=== PATIENT | male | born 1965 | race Caucasian/White ===

== ENCOUNTER 2018-01-15 19:09 | Observation (INO) ==
[2018-01-15] MEDS ORDERED: MethylPREDNISolone Sod Succinate Inj 125 MG/2 ML Vial IV.PUSH ONE (19:22)
[2018-01-15 20:03] LABS: Hematocrit 47.3 % (39.0-51.0); Hemoglobin 16.3 gm/dL (13.0-17.0); Mean Corpuscular HGB Conc 34.6 % (32.0-36.0); Mean Corpuscular Hemoglobin 33.2 pg (27.0-34.0); Mean Corpuscular Volume 95.9 fL (80.0-100.0); Platelet Count 234 th/mm3 (150-450); Red Blood Count 4.93 mil/mm3 (4.50-5.90); Red Cell Distribution Width 12.6 % (11.6-17.2)
[2018-01-15 20:04] LABS: Chloride 105 meq/L (98-107); Potassium 4.1 meq/L (3.5-5.1); Sodium 141 meq/L (136-145)
--- NOTE | 2018-01-15 20:06 | ED ---
HPI General Chief Complaint: Respiratory Symptoms Stated Complaint: SOB Time Seen by Provider: 01/15/18 19:22 Source: patient Mode of arrival: ambulatory Limitations: no limitations History of Present Illness MD Complaint: Reports shortness of breath Onset (ago): day(s) (2) Context: Reports recent illness (He states that he has had a cough with sputum production for the last week. The shortness of breath started yesterday.) Severity: severe Consistency/Duration: constant and progressively worsening Relieving factors: nothing Exacerbating factors: nothing Known history of: Denies COPD, asthma and congestive heart failure Associated symptoms: Reports denies other symptoms Treatment prior to arrival: Reports none Related Data Home oxygen amount: none Home Medications Medication Instructions Recorded Confirmed levothyroxine 175 mcg PO DAILY 01/15/18 01/15/18 lisinopril 5 mg PO DAILY 01/15/18 01/15/18 Allergies Allergy/AdvReac Type Severity Reaction Status Date / Time No Known Allergies Allergy Verified 01/15/18 19:12 Review of Systems ROS: all other systems reviewed are negative [facility] Medical History Medical History Hypertension (Acute) Leukemia (Acute) Thyroid disease (Acute) Surgical History Surgical History History of elbow surgery (Acute) Social History Social History Substance History: No History of Abuse Smoking Status: Current every day smoker Tobacco Type: Cigarettes How Often Do You Have a Drink Containing Alcohol: Never Recent Travel in [facility] within the Last 8 Weeks: No Recent Out of Country Travel within the Last 8 Weeks: No Immunization History Tetanus Immunization: <5 Years Exam Const General: cooperative, healthy appearing, well developed and well groomed Orientation: alert, awake and oriented x3 HENMT Head: normal to inspection, normocephalic and atraumatic Eyes Alignment and Position: alignment normal Conjunctivae: conjunctivae normal Sclera: sclerae normal EOM: EOM intact bilaterally Neck Neck: normal visual inspection and full ROM Chest Chest: normal inspection of the chest Resp Effort & Inspection: labored Auscultation: diminished lung sounds and wheezes Cardio Rate: regular rate Rhythm: regular rhythm GI Inspection: normal to inspection Palpation: soft Back/Spine/Pelvis Cervical Spine: cervical ROM normal Thoracic/Lumbar Spine: thoraco-lumbar ROM normal Skin General: no rashes or lesions noted and turgor normal Neuro General: alert, awake, oriented x3, moves all extremities and CN's II-XI intact bilaterally Extrem General: normal to inspection and full ROM Psych Appearance: grossly normal Mental Status: mental status grossly normal Speech and Movement: speech and movement normal Mood: congruent mood Affect: normal affect Attitude: cooperative Thought Process: normal Thought Content: normal Judgment: judgment good Course Initial Documented Vital Signs Temperature 98.8 F 01/15/18 19:13 Pulse Rate 80 01/15/18 19:13 Respiratory Rate 32 H 01/15/18 19:13 Blood Pressure 180/88 H 01/15/18 19:13 Pulse Oximetry 91 L 01/15/18 19:13 Last Documented Vital Signs Temperature 98.8 F 01/15/18 19:13 Pulse Rate 104 H 01/15/18 21:50 Respiratory Rate 20 01/15/18 21:50 Blood Pressure 169/69 H 01/15/18 19:26 Pulse Oximetry 96 01/15/18 21:20 Critical Care Time Critical Care Time: Yes Total Critical Care Time: 45 Attestation: Time to perform other separately billable procedures was not included in the critical care time. My time did not include minutes spent treating any other patients simultaneously or on activities that did not directly contribute to the patient's treatment. The services I provided to this patient were to treat and/or prevent clinically significant deterioration due to respiratory distress I provided critical care services requiring my management, as noted below: Chart data review, documentation time, medication orders and management, vital sign assessments/reviewing monitor data, ordering and reviewing lab tests, ordering and interpreting/reviewing x-rays and diagnostic studies, care of the patient and discussion of the patient with the admitting physicians Medical Decision Making MDM Narrative Medical decision making narrative: This patient presents to us in respiratory distress. He was tachypneic at about 32 and had sats of about 90% on arrival. His lungs are very tight. He is being given stacked nebs. He has been given a dose of IV Solu-Medrol. Chest x-ray and lab work is pending. This patient was reevaluated following 3 nebs and Solu-Medrol. He still had significant wheezing and tightness. He was then given 3 more nebs. He is only minimally improved following this. Therefore, he needs to be admitted for further respiratory therapy. Medical Screen Exam Complete: Yes Emergency Medical Condition: Yes Differential Diagnosis Differential Diagnosis: Differential diagnosis of dyspnea includes but is not limited to congestive heart failure, pneumonia, wheezing, pneumothorax, pulmonary embolism Lab Data Lab results reviewed: Yes I reviewed the patient's lab results. Result diagrams: 01/15/18 19:40 01/15/18 19:40 Lab Results 01/15/18 01/15/18 01/15/18 Range/Units 19:40 19:40 19:40 CBC w Diff Slide review pending WBC 26.0 H (4.0-11.0) th/mm3 RBC 4.93 (4.50-5.90) mil/mm3 Hgb 16.3 (13.0-17.0) gm/dL Hct 47.3 (39.0-51.0) % MCV 95.9 (80.0-100.0) fL MCH 33.2 (27.0-34.0) pg MCHC 34.6 (32.0-36.0) % RDW 12.6 (11.6-17.2) % Plt Count 234 (150-450) th/mm3 MPV 8.0 (7.0-11.0) fL WBC Differential Manual diff final Seg Neuts % (Manual) 46 (16-70) % Band Neuts % (Manual) 1 (0-6) % Lymphocytes % (Manual) 37 (9-44) % Atypical Lymphs % (Man) 13 H (0-0) % Monocytes % (Manual) 1 (0-8) % Eosinophils % (Manual) 2 (0-4) % Abs Neuts (Manual) 12.2 H (1.8-7.7) th/mm3 Differential Comment . Platelet Estimate Normal (Normal) Platelet Morphology Normal (Normal) RBC Morphology Normal (Normal) Sodium 141 (136-145) meq/L Potassium 4.1 (3.5-5.1) meq/L Chloride 105 (98-107) meq/L Carbon Dioxide 29.5 (21.0-32.0) meq/L Anion Gap 7 (5-15) meq/L BUN 15 (7-18) mg/dL Creatinine 0.88 (0.60-1.30) mg/dL Estimated GFR Greater than 89 (>89) mL/min Random Glucose 114 H (74-106) mg/dL Calcium 8.5 (8.5-10.1) mg/dL Total Bilirubin 0.5 (0.2-1.0) mg/dL AST 27 (15-37) U/L ALT 32 (12-78) U/L Alkaline Phosphatase 70 (45-117) U/L Troponin I Less than 0.02 L (0.02-0.05) ng/mL B-Natriuretic Peptide 11 (0-100) pg/mL Total Protein 7.6 (6.4-8.2) g/dL Albumin 3.9 (3.4-5.0) g/dL Imaging Data Attestation: I personally reviewed and interpreted this imaging study as follows : Radiologist's impression: Chest X-Ray 01/15/18 19:22 CONCLUSION: No acute findings. ECG Data EKG Prior to Arrival: No Attestation: I personally reviewed and interpreted this ECG as follows: (EKG shows a sinus rhythm with a rate of 107. No acute STT wave changes.) Discharge Plan Discharge Disposition Patient Disposition: 30 Still Patient Discharge Details Diagnosis: Acute bronchospasm Physicians Team ED Provider: Emily Cameron Primary Care Provider: UNKNOWN, Attending Provider: Nel Sue Rxs /Orders / Referrals /Forms Prescriptions: No Action levothyroxine 175 mcg Tablet 175 mcg PO DAILY RF: 0 lisinopril 5 mg Tablet 5 mg PO DAILY RF: 0 Discharge Interventions Interventions: Vital Signs Last Done: 01/15/18 19:26 Status ED Status: With Doctor
--- NOTE | 2018-01-15 20:07 | XR ---
EXAM DATE: 01/15/2018 7:56 PM EST AGE/SEX: 52 years / Male INDICATIONS: Shortness of breath. CLINICAL DATA: This is the patient's initial encounter. Patient reports that signs and symptoms have been present for 1 day and indicates a pain score of 0/10. MEDICAL/SURGICAL HISTORY: None. None. COMPARISON: POI, XR CHEST PA AND LAT, 09/02/2017. . FINDINGS: A single AP view of the chest demonstrates the lungs to be symmetrically aerated without evidence of mass, infiltrate or effusion. The cardiomediastinal contours are unremarkable. Osseous structures a re intact. CONCLUSION: No acute findings. Electronically signed by: Jericho Lake MD 01/15/2018 8:05 PM EST
[2018-01-15 20:09] LABS: Albumin 3.9 g/dL (3.4-5.0); Anion Gap 7 meq/L (5-15); Blood Urea Nitrogen 15 mg/dL (7-18); Calcium 8.5 mg/dL (8.5-10.1); Carbon Dioxide 29.5 meq/L (21.0-32.0); Glucose,Random 114 mg/dL (74-106)
[2018-01-15 20:12] LABS: Alanine Aminotransferase 32 U/L (12-78); Aspartate Aminotransferase 27 U/L (15-37); Glomerular Filtration Rate Greater Than 89 mL/min (>89)
[2018-01-15 20:14] LABS: Total Protein 7.6 g/dL (6.4-8.2)
[2018-01-15 20:15] LABS: Alkaline Phosphatase 70 U/L (45-117)
[2018-01-15 20:26] LABS: Atypical Lymphs 13 % (0-0); Eosinophils 2 % (0-4); Lymphocytes 37 % (9-44); Monocytes 1 % (0-8)
[2018-01-15 20:27] LABS: Platelet Estimate Normal (Normal); Platelet Morphology Normal (Normal); RBC Morphology Normal (Normal)
[2018-01-15] MEDS ORDERED: Acetaminophen 325 MG Tablet PO PRN (22:08)
[2018-01-15] MEDS ORDERED: Bisacodyl 10 MG Supp RECTAL PRN (22:08)
[2018-01-16] MEDS ORDERED: Benzonatate 100 MG Capsule PO PRN (00:09)
[2018-01-16] MEDS: MethylPREDNISolone Sod Succinate Inj 40 MG/ML Vial IV.PUSH SCH (02:05)
[2018-01-16 05:47] LABS: Baso # (Auto) 0.6 th/mm3 (0.0-0.2); Baso % (Auto) 3.3 % (0.0-2.0); Hematocrit 45.6 % (39.0-51.0); Hemoglobin 15.5 gm/dL (13.0-17.0); Lymph # (Auto) 1.9 th/mm3 (1.0-4.8); Lymph % (Auto) 9.9 % (9.0-44.0); Mean Corpuscular HGB Conc 33.9 % (32.0-36.0); Mean Corpuscular Hemoglobin 32.3 pg (27.0-34.0); Mean Corpuscular Volume 95.3 fL (80.0-100.0); Mean Platelet Volume 7.9 fL (7.0-11.0); Mono # (Auto) 0.2 th/mm3 (0.0-0.9); Mono % (Auto) 0.9 % (0.0-8.0); Neut # (Auto) 16.1 th/mm3 (1.8-7.7); Neut % (Auto) 85.9 % (16.0-70.0); Platelet Count 230 th/mm3 (150-450); Red Blood Count 4.79 mil/mm3 (4.50-5.90); Red Cell Distribution Width 12.8 % (11.6-17.2); White Blood Count 18.8 th/mm3 (4.0-11.0)
[2018-01-16 05:55] LABS: Chloride 104 meq/L (98-107); Potassium 4.3 meq/L (3.5-5.1); Sodium 139 meq/L (136-145)
[2018-01-16 06:00] LABS: Albumin 3.7 g/dL (3.4-5.0); Anion Gap 8 meq/L (5-15); Blood Urea Nitrogen 13 mg/dL (7-18); Calcium 8.5 mg/dL (8.5-10.1); Carbon Dioxide 27.5 meq/L (21.0-32.0); Glucose,Random 187 mg/dL (74-106)
[2018-01-16 06:03] LABS: Alanine Aminotransferase 30 U/L (12-78); Aspartate Aminotransferase 20 U/L (15-37)
[2018-01-16 06:04] LABS: Glomerular Filtration Rate 86 mL/min (>89)
[2018-01-16 06:05] LABS: Total Protein 7.7 g/dL (6.4-8.2)
[2018-01-16 06:06] LABS: Alkaline Phosphatase 65 U/L (45-117)
--- NOTE | 2018-01-16 09:04 | P.HP ---
History of Present Illness Service: Hospitalist Primary Care Physician: UNKNOWN Chief Complaint: Shortness of breath History of Present Illness: Ms. Melissa is a pleasant 52-year-old male with a history of COPD, hypertension, hypothyroidism who presented to the emergency department on 2017 due to shortness of breath that started day prior to this admission. Patient reports yellowish sputum production. No fever or chills. He denies any chest pain, abdominal pain, nausea or vomiting. Denies any changes in bowel or bladder habits. Chest x-ray was unremarkable. CBC shows significant leukocytosis with WBC 26,000. D-dimer 0.36. At the time of this interview, patient is comfortable on 3 L of oxygen via nasal cannula. He does not use any albuterol or Symbicort at home. He lives with roommates. He recently moved here from [place]. Past medical history: Hypertension, COPD, hypothyroidism Past surgical history: Left elbow surgery Social history: Patient has been smoking for a long time and currently smokes 1 pack a day. He denies using illicit drugs or alcohol. Family history: No family history of heart disease or cancer. Review of Systems All other systems reviewed negative except as stated in HPI PMFSH - History History Provided By: Patient - Medical History Medical History: Medical History (Last Reviewed 01/16/18 @ 09:01 by Shala Churchill DO) Hypertension Leukemia Thyroid disease - Surgical History Surgical History: Surgical History (Last Reviewed 01/16/18 @ 09:01 by Shala Churchill DO) History of elbow surgery - Tobacco History Second Hand Smoke Exposure: Yes Tobacco Use In Past 30 Days: Yes Smoking Status: Current some day smoker Tobacco Type: Cigarettes - Alcohol History How Often Do You Have a Drink Containing Alcohol: Never - Substance Use History Substance History: No History of Abuse - Travel History Recent Travel in the [place] Within the Last 8 Weeks: No Recent Travel Out of the Country Within the Last 8 Weeks: No - Immunization History Tetanus Immunization: <5 Years Medications and Allergies Active Medications: Active Medications Acetaminophen (Tylenol) 650 mg PO Q4H PRN PRN Reason: Temp > 100.4 Al Hydroxide/Mg Hydroxide (Milk Of Magnesia Liq) 30 ml PO Q12H PRN PRN Reason: Mild Constipation Albuterol (Duoneb Neb (Prn)) 1 ampul NEB Q2HR NEB PRN PRN Reason: SOB/WHEEZING Albuterol (Duoneb Neb (John)) 1 ampul NEB Q4HR WHILE AWAKE NEB [facility] Last Admin: 01/16/18 07:27 Dose: 1 ampul Benzonatate (Tessalon Perles) 100 mg PO Q8H PRN PRN Reason: COUGH Last Admin: 01/16/18 00:26 Dose: 100 mg Bisacodyl (Dulcolax Supp) 10 mg RECTAL DAILY PRN PRN Reason: SEVERE CONSITIPATION Budesonide/Formoterol Fumarate (Symbicort 160/4.5 Mcg Inh) 2 puff INH BID [facility] Enoxaparin Sodium (Lovenox Inj) 40 mg SQ Q24H [facility] Guaifenesin (Mucinex Er) 600 mg PO BID [facility] Lactulose (Lactulose Liq) 30 ml PO DAILY PRN PRN Reason: SEVERE CONSITIPATION Levofloxacin (Levaquin) 750 mg PO DAILY [facility] Stop: 01/23/18 08:59 Ondansetron HCl (Zofran Inj) 4 mg IV.PUSH Q6H PRN PRN Reason: NAUSEA OR VOMITING Prednisone (Deltasone) 50 mg PO DAILY [facility] Stop: 01/21/18 08:59 Senna/Docusate Sodium (Elba-Colace) 1 tab PO BID [facility] Sennosides (Senokot) 17.2 mg PO Q12H PRN PRN Reason: Moderate Constipation Sodium Chloride (Ns Flush) 2 ml IV.FLUSH PRN PRN PRN Reason: FLUSH AFTER USING IV ACCESS Allergies Allergy/AdvReac Type Severity Reaction Status Date / Time No Known Allergies Allergy Verified 01/15/18 19:12 Home Medications Medication Instructions Recorded Confirmed Type levothyroxine 175 mcg PO DAILY 01/15/18 01/15/18 History lisinopril 5 mg PO DAILY 01/15/18 01/15/18 History Exam Vital signs: Vital Signs 01/15/18 19:13 01/15/18 19:26 01/15/18 19:30 Temperature 98.8 F Pulse Rate 80 78 74 Respiratory Rate 32 H 20 22 Blood Pressure 180/88 H 169/69 H Pulse Oximetry 91 L 95 01/15/18 19:50 01/15/18 20:00 01/15/18 21:20 Temperature Pulse Rate 88 86 88 Respiratory Rate 20 20 18 Blood Pressure Pulse Oximetry 96 01/15/18 21:35 01/15/18 21:50 01/15/18 23:07 Temperature Pulse Rate 85 104 H 106 H Respiratory Rate 20 20 20 Blood Pressure 115/66 Pulse Oximetry 93 L 01/16/18 00:00 01/16/18 01:10 01/16/18 07:30 Temperature 98.4 F Pulse Rate 105 H 73 Respiratory Rate 18 20 Blood Pressure 131/71 Pulse Oximetry 92 L 94 L 94 L Intake & Output 01/15/18 01/16/18 01/16/18 18:59 06:59 18:59 Intake Total 440 / 440 Output Total 300 / 300 Balance 140 / 140 Weight 104.3 kg Intake: Oral 440 / 440 Output: Urine 300 / 300 Other: # Voids 1 Date of Last Bowel Movement 01/15/18 Weight On Admission 104 kg Narrative: GENERAL: This is a well-nourished, well-developed patient, in no apparent distress. SKIN: No rashes, ecchymoses or lesions. Warm and dry. HEAD: Atraumatic. Normocephalic. No temporal or scalp tenderness. EYES: Pupils equal round and reactive. No injection or drainage. ENT: Nose without bleeding, purulent drainage or septal hematoma. Airway patent. NECK: Trachea midline. No lymphadenopathy. Supple, nontender, no meningeal signs. CARDIOVASCULAR: Regular rate and rhythm without murmurs, gallops, or rubs. No JVD. RESPIRATORY: Moderate air entry, diffuse wheezing present. No accessory muscle use. GASTROINTESTINAL: Abdomen soft, non-tender, nondistended. No guarding. MUSCULOSKELETAL: Extremities without clubbing, cyanosis, or edema. NEUROLOGICAL: Awake and alert. Cranial nerves II through XII intact. No focal neurological deficits. Normal speech. Results - Labs CBC & Chem 7: 01/16/18 05:28 01/16/18 05:28 Labs: Laboratory Results - last 24 hr 01/15/18 01/15/18 01/15/18 19:40 19:40 19:40 CBC w Diff Slide review pending WBC 26.0 H RBC 4.93 Hgb 16.3 Hct 47.3 MCV 95.9 MCH 33.2 MCHC 34.6 RDW 12.6 Plt Count 234 MPV 8.0 Neut % (Auto) Lymph % (Auto) Arthur % (Auto) Eos % (Auto) Baso % (Auto) Neut # (Auto) Lymph # (Auto) Arthur # (Auto) Eos # (Auto) Baso # (Auto) WBC Differential Manual diff final Seg Neuts % (Manual) 46 Band Neuts % (Manual) 1 Lymphocytes % (Manual) 37 Atypical Lymphs % (Man) 13 H Monocytes % (Manual) 1 Eosinophils % (Manual) 2 Abs Neuts (Manual) 12.2 H Differential Comment . Platelet Estimate Normal Platelet Morphology Normal RBC Morphology Normal D-Dimer Quant (PE/DVT) Sodium 141 Potassium 4.1 Chloride 105 Carbon Dioxide 29.5 Anion Gap 7 BUN 15 Creatinine 0.88 Estimated GFR Greater than 89 Random Glucose 114 H Calcium 8.5 Total Bilirubin 0.5 AST 27 ALT 32 Alkaline Phosphatase 70 Troponin I Less than 0.02 L B-Natriuretic Peptide 11 Total Protein 7.6 Albumin 3.9 01/16/18 01/16/18 01/16/18 05:28 05:28 07:45 CBC w Diff Auto diff final WBC 18.8 H RBC 4.79 Hgb 15.5 Hct 45.6 MCV 95.3 MCH 32.3 MCHC 33.9 RDW 12.8 Plt Count 230 MPV 7.9 Neut % (Auto) 85.9 H Lymph % (Auto) 9.9 Arthur % (Auto) 0.9 Eos % (Auto) 0.0 Baso % (Auto) 3.3 H Neut # (Auto) 16.1 H Lymph # (Auto) 1.9 Arthur # (Auto) 0.2 Eos # (Auto) 0.0 Baso # (Auto) 0.6 H WBC Differential . Seg Neuts % (Manual) Band Neuts % (Manual) Lymphocytes % (Manual) Atypical Lymphs % (Man) Monocytes % (Manual) Eosinophils % (Manual) Abs Neuts (Manual) Differential Comment . Platelet Estimate Platelet Morphology RBC Morphology D-Dimer Quant (PE/DVT) 0.36 Sodium 139 Potassium 4.3 Chloride 104 Carbon Dioxide 27.5 Anion Gap 8 BUN 13 Creatinine 0.92 Estimated GFR 86 L Random Glucose 187 H Calcium 8.5 Total Bilirubin 0.6 AST 20 ALT 30 Alkaline Phosphatase 65 Troponin I B-Natriuretic Peptide Total Protein 7.7 Albumin 3.7 - Imaging Impressions Chest X-Ray 01/15/18 19:22 CONCLUSION: No acute findings. Caprini VTE Risk Assessment Caprini VTE Risk Assessment: Moderate/High Risk (score >= 2) Caprini Risk Assessment Model: Point Value = 1 Point Value = 2 Point Value = 3 Point Value = 5 Age 41-60 Minor surgery BMI > 25 kg/m2 Swollen legs Varicose veins or History of unexplained or recurrent spontaneous Oral contraceptives or hormone replacement Sepsis (< 1 month) Serious lung disease, including pneumonia (< 1 month) Abnormal pulmonary function Acute myocardial infarction Congestive heart failure (< 1 month) History of inflammatory bowel disease Medical patient at bed rest Age 61-74 Arthroscopic surgery Major open surgery (> 45 min) Laparoscopic surgery (> 45 min) Malignancy Confined to bed (> 72 hours) Immobilizing plaster cast Central venous access Age >= 75 History of VTE Family history of VTE Factor V Leiden Prothrombin [id number] Lupus anticoagulant Anticardiolipin antibodies Elevated serum homocysteine Heparin-induced thrombocytopenia Other congenital or acquired thrombophilia Stroke (< 1 month) Elective arthroplasty Hip, pelvis, or leg fracture Acute spinal cord injury (< 1 month) Prophylaxis Regimen: Total Risk Factor Score Risk Level Prophylaxis Regimen 0-1 Low Early ambulation 2 Moderate Order ONE of the following: *Sequential Compression Device (SCD) *Heparin 5000 units SQ BID 3-4 Higher Order ONE of the following medications: *Heparin 5000 units SQ TID *Enoxaparin/Lovenox 40 mg SQ daily (WT < 150 kg, CrCl > 30 mL/min) *Enoxaparin/Lovenox 30 mg SQ daily (WT < 150 kg, CrCl > 10-29 mL/min) *Enoxaparin/Lovenox 30 mg SQ BID (WT < 150 kg, CrCl > 30 mL/min) AND/OR *Sequential Compression Device (SCD) 5 or more Highest Order ONE of the following medications: *Heparin 5000 units SQ TID (Preferred with Epidurals) *Enoxaparin/Lovenox 40 mg SQ daily (WT < 150 kg, CrCl > 30 mL/min) *Enoxaparin/Lovenox 30 mg SQ daily (WT < 150 kg, CrCl > 10-29 mL/min) *Enoxaparin/Lovenox 30 mg SQ BID (WT < 150 kg, CrCl > 30 mL/min) AND *Sequential Compression Device (SCD) Assessment and Plan - Plan Mr. Melissa is a pleasant 52-year-old male with a history of hypothyroidism, hypertension and COPD who presents to the emergency department due to 1 day duration of dyspnea. He denies any chest chest pain, fever or chills. He reports yellowish sputum production. Acute COPD exacerbation Continue supplemental oxygen to obtain O2 saturation above 90% Continue DuoNeb PRN and scheduled. Continue Symbicort Start prednisone 50 mg daily. Discontinue methylprednisolone IV Start Levaquin 750 mg p.o. daily Hypertension Hypothyroidism Continue levothyroxine 175 mcg daily and lisinopril 5 mg daily Full code. Lovenox. Discharge plan: Patient can likely be discharged within 24-48 hours. If he needs home O2, it might be challenging due to no insurance.
[2018-01-16] MEDS: guaiFENesin 600 MG ER Tablet PO SCH ×2 (09:07→21:41)
[2018-01-16] MEDS: Enoxaparin Inj 40 MG/0.4 ML Syringe SQ SCH (09:07)
[2018-01-16] MEDS: Senna/Docusate Sodium 8.6/50 MG Tablet PO SCH ×2 (09:08→21:41)
[2018-01-16] MEDS: levoFLOXacin 750 MG Tablet PO SCH (09:23)
[2018-01-16] MEDS: Budesonide-Formoterol 160/4.5 MCG 6 GM Inhaler INH SCH ×2 (11:16→21:41)
--- NOTE | 2018-01-16 12:10 | ECG ---
Date Performed: 01/15/2018 Time Performed: 21:50:12 PTAGE: 52 years EKG: SINUS TACHYCARDIA NONSPECIFIC T-WAVE ABNORMALITY ABNORMAL RHYTHM ECG NO PREVIOUS TRACING DOCTOR: Jaron Bailey Interpretating Date/Time 01/16/2018 12:06:16
[2018-01-17] MEDS: Levothyroxine 100 MCG Tablet PO SCH (07:21)
[2018-01-17] MEDS: Levothyroxine 75 MCG Tablet PO SCH (07:21)
[2018-01-17] MEDS: Lisinopril 5 MG Tablet PO SCH (08:42)
[2018-01-17] MEDS: guaiFENesin 600 MG ER Tablet PO SCH ×2 (08:42→20:02)
[2018-01-17] MEDS: levoFLOXacin 750 MG Tablet PO SCH (08:43)
[2018-01-17] MEDS: Enoxaparin Inj 40 MG/0.4 ML Syringe SQ SCH (08:43)
[2018-01-17] MEDS: Senna/Docusate Sodium 8.6/50 MG Tablet PO SCH ×2 (08:44→20:02)
[2018-01-17] MEDS: Budesonide-Formoterol 160/4.5 MCG 6 GM Inhaler INH SCH ×2 (08:44→20:03)
--- NOTE | 2018-01-17 11:06 | P.PNIM ---
Subjective Interval history: Follow-up acute COPD exacerbation. Patient seen and examined, lying in bed on 2 L nasal cannula. Respiratory wheezing noted in anterior and posterior bilateral upper and lower lobes. Denies any chest pain or shortness of breath. Has been ambulating without any problems. Unable to wean O2 at this time, still with oxygen saturations dropping with ambulation. Will continue steroids and antibiotics. Vital signs stable. Afebrile. Tolerating p.o. intake without any abdominal pain, nausea or vomiting. Physical Exam Vital signs: Vital Signs 01/16/18 11:17 01/16/18 11:19 01/16/18 12:00 Temperature 98.0 F Pulse Rate 85 108 H Respiratory Rate 18 21 Blood Pressure 127/68 Pulse Oximetry 95 92 L 01/16/18 15:23 01/16/18 16:00 01/16/18 19:15 Temperature 97.8 F Pulse Rate 90 95 H 74 Respiratory Rate 18 20 18 Blood Pressure 125/56 L Pulse Oximetry 93 L 92 L 01/16/18 20:00 01/17/18 00:00 01/17/18 07:10 Temperature 97.5 F L 96.4 F L Pulse Rate 75 74 87 Respiratory Rate 18 18 18 Blood Pressure 118/61 126/74 Pulse Oximetry 94 L 94 L 97 01/17/18 08:00 Temperature 96.8 F L Pulse Rate 65 Respiratory Rate 18 Blood Pressure 132/87 Pulse Oximetry 94 L Intake & Output 01/16/18 01/17/18 01/17/18 18:59 06:59 18:59 Intake Total 1200 / 1200 200 / 200 Output Total 1270 / 1270 Balance 1200 / 1200 -1070 / -1070 Weight 107.3 kg Intake: Oral 1200 / 1200 200 / 200 Output: Urine 1270 / 1270 Other: # Voids 5 Date of Last Bowel Movement 01/17/18 # Bowel Movements 0 Narrative: GENERAL: This is a well-nourished, well-developed patient, in no apparent distress. On 2 L nasal cannula. SKIN: No rashes, ecchymoses or lesions. Warm and dry. HEAD: Atraumatic. Normocephalic. No temporal or scalp tenderness. EYES: Pupils equal round and reactive. No injection or drainage. ENT: Nose without bleeding, purulent drainage or septal hematoma. Airway patent. NECK: Trachea midline. No lymphadenopathy. Supple, nontender, no meningeal signs. CARDIOVASCULAR: Regular rate and rhythm without murmurs, gallops, or rubs. No JVD. RESPIRATORY: Expiratory wheezing in bilateral upper anterior and posterior lobes. No accessory muscle use. GASTROINTESTINAL: Abdomen soft, non-tender, nondistended. No guarding. MUSCULOSKELETAL: Extremities without clubbing, cyanosis, or edema. NEUROLOGICAL: Awake and alert. Cranial nerves II through XII intact. No focal neurological deficits. Normal speech. Results - Labs CBC & Chem 7: 01/16/18 05:28 01/16/18 05:28 Assessment and Plan - Plan Mr. Melissa is a pleasant 52-year-old male with a history of hypothyroidism, hypertension and COPD who presents to the emergency department due to 1 day duration of dyspnea. He denies any chest chest pain, fever or chills. He reports yellowish sputum production. Acute COPD exacerbation Continue supplemental oxygen to obtain O2 saturation above 90%. On 2LNC currently. Wean as tolerated. Normal expiratory wheezing bilateral upper lobes. Continue DuoNeb PRN and scheduled. Continue Symbicort. Continue on prednisone 50 mg daily. Continue on Levaquin 750 mg p.o. daily and Mucinex. Hypertension -Continue lisinopril 5 mg daily. Monitor blood pressure trends. Stable at this time. Hypothyroidism Continue levothyroxine 175 mcg daily. Full code. Lovenox. Discharge Planning: Patient can likely be discharged within 24-48 hours. If he needs home O2, it might be challenging due to no insurance. Await clinical improvement. Still with expiratory wheezing and requiring O2.
[2018-01-17] MEDS: MethylPREDNISolone Sod Succinate Inj 40 MG/ML Vial IV.PUSH SCH ×4 (11:55→22:57)
[2018-01-18] MEDS: MethylPREDNISolone Sod Succinate Inj 40 MG/ML Vial IV.PUSH SCH ×2 (00:17→05:43)
[2018-01-18] MEDS: Levothyroxine 100 MCG Tablet PO SCH (05:43)
[2018-01-18] MEDS: Levothyroxine 75 MCG Tablet PO SCH (05:44)
[2018-01-18] MEDS: Senna/Docusate Sodium 8.6/50 MG Tablet PO SCH ×2 (08:51→08:53)
[2018-01-18] MEDS: Lisinopril 5 MG Tablet PO SCH (08:51)
[2018-01-18] MEDS: guaiFENesin 600 MG ER Tablet PO SCH (08:51)
[2018-01-18] MEDS: levoFLOXacin 750 MG Tablet PO SCH (08:51)
[2018-01-18] MEDS: Budesonide-Formoterol 160/4.5 MCG 6 GM Inhaler INH SCH (08:51)
[2018-01-18] MEDS: Enoxaparin Inj 40 MG/0.4 ML Syringe SQ SCH (08:51)
--- NOTE | 2018-01-18 09:43 | P.DS ---
Date of admission: 01/15/18 22:23 Primary care physician: UNKNOWN Anticipated date of discharge: 01/18/18 Brief History from admission: Ms. Melissa is a pleasant 52-year-old male with a history of COPD, hypertension, hypothyroidism who presented to the emergency department on 2017 due to shortness of breath that started day prior to this admission. Patient reports yellowish sputum production. No fever or chills. He denies any chest pain, abdominal pain, nausea or vomiting. Denies any changes in bowel or bladder habits. Chest x-ray was unremarkable. CBC shows significant leukocytosis with WBC 26,000. D-dimer 0.36. At the time of this interview, patient is comfortable on 3 L of oxygen via nasal cannula. He does not use any albuterol or Symbicort at home. He lives with roommates. He recently moved here from [place]. Past medical history: Hypertension, COPD, hypothyroidism Past surgical history: Left elbow surgery Social history: Patient has been smoking for a long time and currently smokes 1 pack a day. He denies using illicit drugs or alcohol. Family history: No family history of heart disease or cancer. Patient update on day of discharge: Patient seen and examined, sitting in chair comfortably on room air in no apparent distress. Wheezing is significantly improved overnight. He denies any chest pain denies any shortness of breath. Is doing well ambulating well without any short of breath. Will discharge home to follow-up with PCP. Given antibiotics, steroids, Mucinex and inhaler. Patient advised to stop smoking. DS: Medications - Discharge Medications Prescriptions: benzonatate [Tessalon Perles] 100 mg PO Q8H PRN 5 Days cap PRN Reason: Cough budesonide-formoterol [Symbicort] 2 puff INH BID #1 inh guaifenesin [Mucinex] 600 mg PO BID 5 Days #10 tab levofloxacin 750 mg PO DAILY 4 Days #4 tab prednisone 20 mg PO DAILY 5 Days #5 tab DS: Summary Hospital Course: Mr. Melissa is a pleasant 52-year-old male with a history of hypothyroidism, hypertension and COPD who presents to the emergency department due to 1 day duration of dyspnea. He denies any chest chest pain, fever or chills. He reports yellowish sputum production. He presented with acute COPD exacerbation. Required supplemental O2 which has been weaned off to room air. Wheezing has been improved. Duo nebs were given. Symbicort started. Given IV steroids and transition to p.o. steroids. Continue Levaquin upon discharge. Continue Mucinex. Patient has history of hypertension, blood pressure trends are stable during hospitalization. Patient also history of hypothyroidism which is stable during hospitalization. Patient is doing well on day of discharge. Follow-up PCP. Activity as tolerated. Heart healthy diet. Prescriptions as ordered. - Time Spent with Patient Total time spent providing and/or coordinating discharge services: Greater than 30 minutes - Quality: VTE Deep Vein Thrombosis/Pulmonary Embolism Present on Admission: No Exam Vital signs: Vital Signs 01/17/18 11:52 01/17/18 12:00 01/17/18 16:00 Temperature 97.2 F L 97.0 F L Pulse Rate 88 55 L 92 H Respiratory Rate 18 19 Blood Pressure 111/63 126/66 Pulse Oximetry 95 96 01/17/18 16:05 01/17/18 19:18 01/17/18 20:00 Temperature 96.9 F L Pulse Rate 67 74 85 Respiratory Rate 20 Blood Pressure 109/60 Pulse Oximetry 93 L 93 L 01/17/18 23:02 01/18/18 00:00 01/18/18 07:24 Temperature 97.2 F L Pulse Rate 69 70 62 Respiratory Rate 18 Blood Pressure 124/66 Pulse Oximetry 98 94 L 01/18/18 07:46 Temperature Pulse Rate Respiratory Rate Blood Pressure Pulse Oximetry 93 L Intake & Output 01/17/18 01/18/18 01/18/18 18:59 06:59 18:59 Intake Total 1000 / 1000 Balance 1000 / 1000 Weight 107.2 kg Intake: Oral 1000 / 1000 Other: # Voids 2 3 Date of Last Bowel Movement 01/17/18 01/17/18 Narrative: GENERAL: This is a well-nourished, well-developed patient, in no apparent distress. On room air. SKIN: No rashes, ecchymoses or lesions. Warm and dry. HEAD: Atraumatic. Normocephalic. No temporal or scalp tenderness. EYES: Pupils equal round and reactive. No injection or drainage. ENT: Nose without bleeding, purulent drainage or septal hematoma. Airway patent. NECK: Trachea midline. No lymphadenopathy. Supple, nontender, no meningeal signs. CARDIOVASCULAR: Regular rate and rhythm without murmurs, gallops, or rubs. No JVD. RESPIRATORY: No wheezing today. No accessory muscle use. GASTROINTESTINAL: Abdomen soft, non-tender, nondistended. No guarding. MUSCULOSKELETAL: Extremities without clubbing, cyanosis, or edema. NEUROLOGICAL: Awake and alert. Cranial nerves II through XII intact. No focal neurological deficits. Normal speech. Results Procedures completed during hospitalization: See above - Impressions ITS Impressions Chest X-Ray 01/15/18 19:22 CONCLUSION: No acute findings. Discharge Plan - Discharge Disposition Patient Disposition: Discharge Home - Discharge Condition Condition: Good - Discharge Order Discharge Orders: Discharge Order (Routine); Ordered 01/18/18 Ordered By: Cheryl Yao - Discharge Details Anticipated Discharge Date: 01/18/18 - Physicians Team Primary Care Provider: UNKNOWN, Attending Provider: Tiffany Lewis
[2018-01-18 10:31] VITALS: BP 124/61; PULSE 68; RESP 20; TEMP 96.4; O2SAT 91
== END 2018-01-18 10:57 | disposition home or self-care (01) ==
LOC: PHEDA 19:09 → PHED 19:09 → PH3 23:11
PROVIDERS: ADMIT Hospitalist; ATTEND Hospitalist
DX: J44.1 Chronic obstructive pulmonary disease with (acute) exacerbation; F17.210 Nicotine dependence, cigarettes, uncomplicated; C95.90 Leukemia, unspecified not having achieved remission; Z79.899 Other long term (current) drug therapy; I10 Essential (primary) hypertension; Z79.890 Hormone replacement therapy; E03.9 Hypothyroidism, unspecified